=== PATIENT | female | born 1965 | race Caucasian/White ===

== ENCOUNTER → 2017-09-02 | Outpatient (CLI) | payer OTHER ==
[~2017-09-02] MED LIST: ACETAMINOPHEN 1000 MG/100 ML 100 ML IV ONE; BACLOFEN10 MG PO; GADOBENATE DIMEGLUMINE 1 ML IV ONE; LIDOCAINE HCL (LTA) 4 ML SOLN ONE; percocet PO
--- NOTE | 2017-09-04 13:26 | Diagnostic Imaging Report ---
History: 47-year-old female 2 weeks status post microdiscectomy on August 17, 2017 complains of 2 days of left leg pain Comparison studies: Outside studies are not available at this time Technique: Sagittal T1, T2, STIR, axial T1 and T2, post contrast axial and sagittal T1 Intravenous contrast: 17 cc of MultiHance Findings: Number of lumbar vertebral bodies:Five. Alignment: Normal lumbar lordosis. No scoliosis . Lower thoracic cord: Normal in signal and morphology. The tip of the conus is at L1 . Soft tissues: Postoperative inflammatory changes are seen posterior subcutaneous soft tissues to the left of L5-S1 Paraspinal muscles: Well preserved. Vertebrae: No compression fractures, infection or neoplasm. 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 L1-L2: Slight decreased T2 signal and disc space. Right asymmetric bulging disc is noted with 4.3 mm of posterior mass effect. There is mild narrowing of the spinal canal. There is mild right foraminal narrowing. L2-L3: There is slight decreased T2 signal within the disc. There is a very mild symmetric bulging disc with 1.9 mm of posterior mass effect. Spinal canal is widely patent. Bilateral foramina are patent. L3-L4: No abnormalities L4-L5: No abnormalities L5-S1: Postoperative changes are seen from a left hemilaminectomy and microdiscectomy. There is loss of disc height at L5-S1. A focal 6.6 x 9.8 x 8.4 mm recurrent focal disc herniation is present in the left subarticular zone. It does not enhance and is surrounded by enhancing scar tissue. There is resulting narrowing of the spinal canal. Bilateral foramen are widely patent. IMPRESSION: Recurrent 6.6 x 9.8 x 8.4 mm focal disc herniation in the left subarticular zone at L5-S1 Signed by: Dr. Mono Devine M.D. on 09/04/2017 1:23 PM
== END ==
LOC: MRI 15:58
PROVIDERS: ATTEND Neurological Surgery
DX: M51.17 Intervertebral disc disorders with radiculopathy, lumbosacral region (principal)
CPT/HCPCS: 72158

== ENCOUNTER 2017-09-03 04:09 | Observation (INO) | payer OTHER ==
[~2017-09-03] VITALS: Ht 167.6 cm; Wt 89.9 kg
[2017-09-03] VITALS (7 sets, daily range): BP systolic 110–135; BP diastolic 56–63
[2017-09-03] MEDS ORDERED: BACLOFEN10 MG PO (07:05)
[2017-09-03] MEDS ORDERED: percocet PO (07:28)
[2017-09-03] MEDS ORDERED: THROMBIN FOR SOLN 5,000 UNIT VIAL ONE (07:52)
[2017-09-03] MEDS ORDERED: BUPIVACAINE 0.5%/EPI 30 ML SDV INJ ONE (07:52)
[2017-09-03] MEDS ORDERED: GELATIN SPONGE SZ 100 ONE (07:52)
[2017-09-03] MEDS ORDERED: BACITRACIN 50,000 UNIT VIAL ONE (07:52)
[2017-09-03] MEDS: LACTATED RINGER'S 1,000 ML IV SCH ×2 (08:59→17:19)
[2017-09-03] MEDS: BACLOFEN 10 MG TAB PO SCH ×3 (09:00→21:10)
[2017-09-03] MEDS ORDERED: HYDROMORPHONE 2MG/ML INJ IV PRN (09:00)
[2017-09-03] MEDS ORDERED: CEPACOL SORE THROAT LOZENGES PO PRN (09:00)
[2017-09-03] MEDS ORDERED: CARISOPRODOL 350 MG TAB PO PRN (09:00)
[2017-09-03] MEDS ORDERED: MORPHINE SULFATE 5 MG/ML VIAL IM PRN (09:00)
[2017-09-03] MEDS ORDERED: ACETAMINOPHEN 325 MG TAB PO PRN (09:00)
[2017-09-03] MEDS ORDERED: MAGNESIUM/ALUMINUM/SIMETHICONE 30 ML UDC PO PRN (09:00)
[2017-09-03] MEDS ORDERED: ONDANSETRON HCL INJ 2 MG/ML VIAL IV PRN (09:00)
[2017-09-03] MEDS ORDERED: ZOLPIDEM TARTRATE 5 MG TAB PO PRN (09:00)
[2017-09-03] MEDS ORDERED: PROMETHAZINE HCL (IM) 25 MG/ML VIAL IM PRN (09:00)
--- NOTE | 2017-09-03 09:45 | Operative Report ---
DATE OF PROCEDURE: September 03, 2017 PREOPERATIVE DIAGNOSIS: Large, recurrent, left L5-S1 disk herniation with severe recurrent left S1 radiculopathy, M51.17. POSTOPERATIVE DIAGNOSIS: Large, recurrent, left L5-S1 disk herniation with severe recurrent left S1 radiculopathy, M51.17. PROCEDURE: Redo left L5-S1 laminotomy, medial facetectomy and microsurgical diskectomy, 316[address]. ANESTHESIA: General. INDICATIONS: The patient is a 51-year-old woman who underwent left L5-S1 microsurgical diskectomy by me 3 weeks ago with excellent initial results. Yesterday she developed excruciating, recurrent, low back pain radiating down the left leg associated with numbness of the foot such that she was no longer able to stand and walk. She had a stat MRI yesterday, which revealed large recurrent disk herniation. Her pain would not respond to Percocet. She came to the emergency room this morning and was admitted for reoperation. PROCEDURE: After induction of general anesthesia, the patient was placed on the operating table in prone position over a Brown frame. The lumbar region was prepped and draped in sterile fashion. A small incision was created overlying her previous incision scar. The lumbar fascial sutures were removed. Wound seroma, which was serosanguineous, was evacuated. The region of the laminotomy was defined. The operating microscope was brought in. The lateral margin of the dura and the lateral margin of the S1 nerve root were defined with a #4 Dover instrument. The herniated disk material immediately came into view peaking under the S1 nerve root. This edge was retrieved with a micro-ball probe and grasped with a micro-pituitary rongeur, and a large fragment of disk was carefully delivered out. This allowed some relaxation of the nerve root, which allowed it to be retracted somewhat medially. The residual herniated disk material was then carefully removed as multiple fragments with a micro-ball probe and micro-pituitary rongeur. Loose remaining contents of the disk were then thoroughly evacuated with curettes and pituitary rongeurs. Excellent decompression of the nerve root was achieved. The wound was copiously irrigated with Bacitracin solution. Hemostasis was secured. The lumbar fascia was closed with #0 Vicryl sutures. Subcutaneous layer was closed with 2-0 Vicryl sutures. The skin was closed with 3-0 Monocryl sutures. A dressing was applied. The patient was awakened, extubated and taken to the postanesthesia care unit in stable condition. No intraoperative complications were encountered. Estimated blood loss was 10 mL. Job#: [id number]
[2017-09-03] MEDS: CEFAZOLIN SOD 1 GM VIAL IV SCH ×2 (14:00→21:10)
[2017-09-03] MEDS ORDERED: CEFAZOLIN SOD 1 GM/NS 50ML 50 ML IV SCH (14:00)
[2017-09-03] MEDS: OXYCODONE/ACETAMINOPHEN 5-325 1 EACH TABLET PO PRN ×2 (15:31→19:37)
[2017-09-03] MEDS ORDERED: NEOSTIGMINE 5 MG/5ML SYR ONE (17:49)
[2017-09-03] MEDS ORDERED: PROPOFOL IV EMULSION 10 MG/ML 20 ML VIAL ONE (17:49)
[2017-09-03] MEDS ORDERED: SEVOFLURANE INHAL SOLN 250 ML PEN BTL ONE (17:49)
[2017-09-03] MEDS ORDERED: LIDOCAINE HCL 2% LOCAL INJ 5 ML SDV VIAL INJ ONE (17:49)
[2017-09-03] MEDS ORDERED: ROCURONIUM BROMIDE 10 MG/ML 5ML VIAL ONE (17:49)
[2017-09-03] MEDS ORDERED: GLYCOPYRROLATE INJ 1MG/ 5 ML SYR ONE (17:49)
[2017-09-03] MEDS ORDERED: DEXAMETHASONE SOD PHOS INJ 4 MG/ML VIAL ONE (17:49)
[2017-09-03] MEDS ORDERED: ONDANSETRON HCL INJ 2 MG/ML VIAL ONE (17:49)
[2017-09-03] MEDS ORDERED: FENTANYL CITRATE/PF 100MCG/2 ML INJ ONE (18:06)
[2017-09-03] MEDS ORDERED: MIDAZOLAM HCL 2 MG/2 ML VIAL ONE (18:06)
[2017-09-04] VITALS: BP 119/58
[2017-09-04] MEDS: LACTATED RINGER'S 1,000 ML IV SCH ×2 (01:39→09:59)
[2017-09-04 04:00] VITALS: BP 138/63
[2017-09-04] MEDS: OXYCODONE/ACETAMINOPHEN 5-325 1 EACH TABLET PO PRN ×2 (04:16→08:07)
[2017-09-04] MEDS: CEFAZOLIN SOD 1 GM VIAL IV SCH (06:15)
[2017-09-04] MEDS: BACLOFEN 10 MG TAB PO SCH (08:07)
[2017-09-04 08:14] VITALS: BP 131/59
[2017-09-04 09:00] VITALS: BP 131/59
== END 2017-09-04 10:45 | disposition home or self-care (01) ==
LOC: INTOOBSV 06:22 → MED/SURG 06:22
PROVIDERS: ADMIT Neurological Surgery; ATTEND Neurological Surgery
DX: M51.17 Intervertebral disc disorders with radiculopathy, lumbosacral region (principal); G11.4 Hereditary spastic paraplegia; Z98.84 Bariatric surgery status
CPT/HCPCS: 36415; 63042; 69990; 72020; 84702; 88304; 96360; G0378 ×2; J0690 ×2; J1100; J2001; J2250; J2270; J2405

== ENCOUNTER → 2018-04-13 | Day surgery (SDC) | payer OTHER ==
[~2018-04-13] MED LIST changes: -ACETAMINOPHEN 1000 MG/100 ML 100 ML IV ONE; +CALCIUM 500+D1 EACH PO; +FENTANYL CITRATE/PF 100MCG/2 ML INJ ONE; -GADOBENATE DIMEGLUMINE 1 ML IV ONE; +IRON PO; -LIDOCAINE HCL (LTA) 4 ML SOLN ONE; +LIDOCAINE HCL 2% LOCAL INJ 5 ML SDV VIAL INJ ONE; +MIDAZOLAM HCL 2 MG/2 ML VIAL ONE; +MULTI-VITAMIN1 EACH PO; +PROPOFOL IV EMULSION 10 MG/ML 50 ML VIAL ONE; +VITAMIN D3400 UNI1 PO
--- OUTSIDE RECORDS SUMMARY | 2018-04-13 05:14 | XMS REPORT | Clinical Summary ---
Author Author [facility] Address Unknown Phone Unavailable Care Team Providers Care Top Lift Compressor Name Role Phone Jeff Payne DO PCP Allergies No Known Allergies Medications Not on file Active Problems Not on file Social History Date Tobacco Use Types Packs/Day Years Used Former Smoker Cigarettes Alcohol Use Drinks/Week oz/Week Comments No Sex Assigned at Date Recorded Not on file Industry Job Start Date Occupation Not on file Not on file Not on file Travel End Travel History Travel Start No recent travel history available. Last Filed Vital Signs Not on file Plan of Treatment Health Maintenance Due Date Last Done Comments MMR VACCINES (1 of - 11/20/1968 Standard series) VARICELLA VACCINES (1 of 11/20/1980 2 - 2-dose adolescent series) CERVICAL CANCER SCREENING 11/20/1988 BREAST CANCER SCREENING 11/20/2017 COLON CANCER SCREENING 11/20/2017 SHINGRIX VACCINE (1 of 2) 11/20/2017 INFLUENZA VACCINE 12/30/2017 HEPATITIS B VACCINES Aged Out No longer eligible based on patient's age to complete this topic IPV VACCINES Aged Out No longer eligible based on patient's age to complete this topic MENINGOCOCCAL VACCINE Aged Out No longer eligible based on patient's age to complete this topic Results Not on fileafter 04/12/2017 Insurance Payer Benefit Subscriber ID Type Phone Address Plan / Group [facility] xxxxxxxxx HMO/PPO THCARE CHOICE/CHO ICE + Advance Directives Patient has advance care planning documents on file. For more information, christian pruitt contact: Alex Valdivia [address] [place] [phone]
--- OUTSIDE RECORDS SUMMARY | 2018-04-13 05:14 | XMS REPORT ---
[facility] Address Unknown Phone Unavailable Care Team Providers Care Photographer Lithographic Name Role Phone MARCIO ARMENTA Unavailable Unavailable Problems This patient has no known problems. Allergies, Adverse Reactions, Alerts This patient has no known allergies or adverse reactions. Medications This patient has no known medications. Results Test Description Test Time Test Comments Text Results Atomic Results Result Comments MRI SPINE LUMBAR WOW [place] [address] Patient Name: MICHAEL FLORES MR #: [id number] : 1965 Age/Sex: 51/F Req #: [id number] [facility] Physician: Ordered by: MARCIO ARMENTA MD Report #: [id number] Location: MRI Room/Bed: Procedure: [id number] MRI/MRI SPINE LUMBAR WOW Exam Date: Exam Time: REPORT STATUS: Signed History: 47-year-old female 2 weeks status post microdiscectomy on August 17, 2017 complains of 2 days of left leg pain Comparison studies: Outside studies are not available at this time Technique: Sagittal T1, T2, STIR, axial T1 and T2, post contrast axial and sagittal T1 Intravenous contrast: 17 cc of MultiHance Findings: Number of lumbar vertebral bodies:Five. Alignment: Normal lumbar lordosis. No scoliosis . Lower thoracic cord: Normal in signal and morphology. The tip of the conus is at L1 . Soft tissues: Postoperative inflammatory changes are seen posterior subcutaneous soft tissues to the left of L5-S1 Paraspinal muscles: Well preserved. Vertebrae: No compression fractures, infection or neoplasm. 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 L1-L2: Slight decreased T2 signal and disc space. Right asymmetric bulging disc is noted with 4.3 mm of posterior mass effect. There is mild narrowing of the spinal canal. There is mild right foraminal narrowing. L2-L3: There is slight decreased T2 signal within the disc. There is a very mild symmetric bulging disc with 1.9 mm of posterior mass effect. Spinal canal is widely patent. Bilateral foramina are patent. L3-L4: No abnormalities L4-L5: No abnormalities L5-S1: Postoperative changes are seen from a left hemilaminectomy and microdiscectomy. There is loss of disc height at L5- S1. A focal 6.6 x 9.8 x 8.4 mm recurrent focal disc herniation is present in the left subarticular zone. It does not enhance and is surrounded by enhancing scar tissue. There is resulting narrowing of the spinal canal. Bilateral foramen are widely patent. IMPRESSION: Recurrent 6.6 x 9.8 x 8.4 mm focal disc herniation in the left subarticular zone at L5-S1 Signed by: Dr. Mono Mcconnell M.D. on 09/04/2017 1:23 PM Dictated By: MONO MCCONNELL MD [id number] Transcribed By: MAKSIM on 09/04/17 1323 COPY TO: MARCIO ARMENTA MD
[2018-04-13 08:25] VITALS: BP 123/75
== END | disposition home or self-care (01) ==
LOC: OR 05:05
PROVIDERS: ATTEND Internal Medicine Gastroenterology
DX: Z12.11 Encounter for screening for malignant neoplasm of colon (principal); K64.8 Other hemorrhoids; G70.9 Myoneural disorder, unspecified; Z68.32 Body mass index [BMI] 32.0-32.9, adult; Z87.891 Personal history of nicotine dependence; Z80.0 Family history of malignant neoplasm of digestive organs
CPT/HCPCS: 45378; 81025; 93005; J2001; J2250

== ENCOUNTER → 2018-12-13 | Outpatient (CLI) | payer OTHER ==
[~2018-12-13] MED LIST changes: -FENTANYL CITRATE/PF 100MCG/2 ML INJ ONE; -LIDOCAINE HCL 2% LOCAL INJ 5 ML SDV VIAL INJ ONE; -MIDAZOLAM HCL 2 MG/2 ML VIAL ONE; -PROPOFOL IV EMULSION 10 MG/ML 50 ML VIAL ONE
--- NOTE | 2018-12-14 15:42 | Diagnostic Imaging Report ---
Exam: Bone mineral density study. History: Osteopenia. Comparison: None Discussion: Evaluation of the left hip, and lumbar spine was performed utilizing DEXA Hologic bone densitometer. The study is technically adequate. Left hip total bone mineral density: 0.999gm/cm2, T-score is 0.5, Z-score is 1.0. Left hip femoral neck bone mineral density: 0.854gm/cm2, T-score is 0, Z-score is 0.9. Lumbar spine total bone mineral density:1.148gm/cm2, T-score is0.9, Z-score is 1.7. Impression: 1. Normal bone mineral density of the left hip, fracture risk is not increased. 2. Normal bone mineral density of the lumbar spine, fracture risk is not increased. Least significant change (LSC) for bone mineral density as provided by environmental protection officer is 0.023 g/cm2 for lumbar spine and 0.027 g/cm2 for total hip. 10 -year fracture risk per WHO Fracture Risk Assessment Tool (FRAX) for: Not reported because all T-scores at or above -1.0 The patient's fracture risk is compared to an age-matched control. Medical evaluation for secondary causes of low bone bone mineral density may be appropriate. Correlate clinically for the necessity and timing of the next bone mineral density study. Signed by: Dr. Kd Anthony M.D. on 12/14/2018 3:39 PM
--- NOTE | 2018-12-24 08:33 | Diagnostic Imaging Report ---
#[id number] - MGSCRBIL #BILATERAL DIGITAL SCREENING MAMMOGRAM WITH CAD: 12/13/2018 Comparison is made to exam dated: 08/24/2015 [facility]. Current study contains 4 films. There are scattered fibroglandular elements in both breasts. Current study was also evaluated with a Computer Aided Detection (CAD) system. Benign appearing calcifications are noted bilaterally. No significant masses, calcifications, or other findings are seen in either breast. IMPRESSION: BENIGN There is no mammographic evidence of malignancy. A 1 year screening mammogram is recommended. The patient will be notified by letter of the results. DONYA TODD M.D. ct/penrad:12/23/2018 15:06:47 Recovery Operator: Samanta PAZ)(Jennifer), [facility] letter sent: Normal Exam Mammogram BI-RADS: 2 Benign
== END ==
LOC: MAMMO 08:59
PROVIDERS: ATTEND Family Medicine
DX: Z12.31 Encounter for screening mammogram for malignant neoplasm of breast (principal); Z13.820 Encounter for screening for osteoporosis
CPT/HCPCS: 77067; 77080

== ENCOUNTER → 2019-12-27 | Outpatient (CLI) | payer OTHER | LOC: MAMMO 12:39 | PROVIDERS: ATTEND Family Medicine | DX: Z12.31 Encounter for screening mammogram for malignant neoplasm of breast (principal) | CPT/HCPCS: 77067 ==